=== PATIENT | male | born 1985 | race African-American/Black ===

== ENCOUNTER 2017-10-13 17:41 | Emergency (ER) | payer OTHER ==
[~2017-10-13] VITALS: Ht 165.1 cm; Wt 65.8 kg
[2017-10-13] MEDS ORDERED: HYDROCODONE/APAP 10-325 MG TABLET PO ONE (18:00)
--- NOTE | 2017-10-13 18:12 | NUR ---
PT MEDICATED PER ORDER, XRAY CALLED
[2017-10-13] MEDS ORDERED: HYDROCODONE/APAP 10-325 MG TABLET ONE (18:22)
--- NOTE | 2017-10-13 19:05 | NUR ---
SBAR REPORT GIVEN TO CHRYSTAL GONZALEZ AT PT BEDSIDE
--- NOTE | 2017-10-13 20:24 | NUR ---
Patient discharged to home in stable conditon. Written and verbal after care instructions given. Patient verbalizes understanding of instructions.
== END 2017-10-13 20:26 | disposition home or self-care (01) ==
LOC: ER 17:43
DX: M54.12 Radiculopathy, cervical region (principal); M25.512 Pain in left shoulder; Z88.6 Allergy status to analgesic agent
CPT/HCPCS: 72125; 73000; 73030; A4663

== ENCOUNTER 2019-01-20 17:50 | Emergency (ER) | payer OTHER, BC ==
[~2019-01-20] VITALS: Ht 165.1 cm; Wt 68.0 kg
--- NOTE | 2019-01-20 18:10 | NUR ---
PATIENT WAS SEEN BY MD. HE IS AWAKE AND ALERT.
[2019-01-20] MEDS ORDERED: predniSONE 10 MG TABLET ONE (18:13)
[2019-01-20] MEDS ORDERED: predniSONE 50 MG TABLET ONE (18:13)
[2019-01-20] MEDS ORDERED: IPRATROPIUM BROMIDE 0.5 MG/2.5 ML NEBU ONE ×2 (18:14→19:54)
[2019-01-20] MEDS ORDERED: ALBUTEROL SULFATE 2.5 MG/3 ML NEBU ONE ×2 (18:14→19:54)
[2019-01-20] MEDS ORDERED: ALBUTEROL SULFATE 2.5 MG/ 0.5 ML NEBU ONE (18:15)
[2019-01-20] MEDS ORDERED: predniSONE 20 MG TABLET PO ONE (18:15)
[2019-01-20] MEDS ORDERED: ALBUTEROL SULFATE 2.5 MG/3 ML NEBU NEB ONE ×2 (18:15→19:45)
[2019-01-20] MEDS ORDERED: IPRATROPIUM BROMIDE 0.5 MG/2.5 ML NEBU NEB ONE ×2 (18:15→19:45)
--- NOTE | 2019-01-20 18:19 | NUR ---
PATIENT RECEIVING NEBULIZED TX
--- NOTE | 2019-01-20 19:11 | NUR ---
PATIENT STATES HE FEELS "A LITTLE BETTER". HANDOFF REPORT GIVEN TO BEL CLEMENTE
--- NOTE | 2019-01-20 19:26 | NUR ---
Pt resting in bed, breathing tx complete. Pt states he feels better. SA02 99% room air.
--- NOTE | 2019-01-20 19:38 | NUR ---
Dr. Esparza at bedside for update/re-evaluation.
--- NOTE | 2019-01-20 19:59 | NUR ---
Pt in bed, receiving breathing tx. Appears in no apparent distress.
--- NOTE | 2019-01-20 20:50 | NUR ---
Patient discharged to home in stable conditon. Written and verbal after care instructions given. Patient verbalizes understanding of instructions. Pt ambulated out of ER in stable gait. Pt states he feels better after breathing tx. No acute distress noted. Respirations even + unlabored. SA02 99% room air.
[2019-01-20 20:52] VITALS: BP 122/76
== END 2019-01-20 20:56 | disposition home or self-care (01) ==
LOC: ER 17:50
DX: J45.909 Unspecified asthma, uncomplicated (principal); Z88.6 Allergy status to analgesic agent; F17.290 Nicotine dependence, other tobacco product, uncomplicated
CPT/HCPCS: 71045; 94640; 94644; 99285; 99406; J7512 ×2; A4663; J3590